=== PATIENT | male | born 1955 | race Caucasian/White ===

== ENCOUNTER 2019-03-19 02:31 | Emergency (ER) | payer MEDICAID ==
[~2019-03-19] VITALS: Ht 172.7 cm; Wt 70.6 kg
--- NOTE | 2019-03-19 02:48 | NUR ---
[facility] FOR RX REFILL, WAS AT [facility] TODAY TO FILL RX AND NOW UNABLE TO CERTIFIED MASSAGE THERAPIST. RN FROM OFFICE SENT HER HERE. PT TAKES MORPHINE 30MG/D, NORCO? 7.5/325. PT HAVING N/V/D/PAIN. REC'D MARTIR SL 4, NS 150CC. BP 210/110. MONITORS APPLIED, SIDERAILS UP X2, CALL LIGHT WITHIN REACH
[2019-03-19] MEDS ORDERED: HYDROmorphone 1 MG/ML, 1ML VIAL ONE (02:51)
[2019-03-19] MEDS ORDERED: HYDROmorphone 2 MG/ML, 1ML IVPush PRN (03:00)
--- NOTE | 2019-03-19 03:02 | NUR ---
PT MEDICATED PER MAR
[2019-03-19] MEDS ORDERED: ASPI-496 PO (03:05)
[2019-03-19] MEDS ORDERED: IBUP100T PO (03:05)
[2019-03-19] MEDS ORDERED: ALBU0.63 NEB (03:05)
[2019-03-19] MEDS ORDERED: ACET325T14 PO (03:05)
[2019-03-19] MEDS ORDERED: OXYC5CAP2 PO (03:05)
[2019-03-19 03:20] LABS: BASOPHILS # (AUTO) 0.11 x10^3/uL (0-0.1); BASOPHILS % (AUTO) 1 % (0-1); EOSINOPHILS # (AUTO) 0.42 x10^3/uL (0-0.4); EOSINOPHILS % (AUTO) 4 % (1-7); LYMPHOCYTES # (AUTO) 2.21 x10^3/uL (1-3.4); LYMPHOCYTES % (AUTO) 23 % (22-44); MD NO; MEAN CORPUSCULAR HEMOGLOBIN 29.6 pg (27.5-34.5); MEAN CORPUSCULAR HGB CONC 33.1 g/dL (33.2-36.2); MEAN CORPUSCULAR VOLUME 89.5 fL (81-97); MONOCYTES # (AUTO) 0.71 x10^3/uL (0.2-0.8); MONOCYTES % (AUTO) 7 % (2-9); NEUTROPHILS # (AUTO) 6.36 x10^3/uL (1.8-6.8); NEUTROPHILS % (AUTO) 65 % (42-75); PLATELET COUNT 225 x10^3/uL (130-400); RED CELL DISTRIBUTION WIDTH 14.1 % (9.4-14.8)
[2019-03-19] MEDS ORDERED: HYDROmorphone 1 MG/ML, 1ML INJ IVPush PRN (03:30)
[2019-03-19 03:31] LABS: ALBUMIN 3.4 g/dL (3.4-5.0); ANION GAP 8 mmol/L (5-15); CALCIUM 8.6 mg/dL (8.5-10.1); CHLORIDE 110 mmol/L (98-107); CREATININE 1.01 mg/dL (0.7-1.3)
--- NOTE | 2019-03-19 03:57 | NUR ---
PT TO CT
[2019-03-19 04:41] VITALS: BP 168/93
--- NOTE | 2019-03-19 04:42 | NUR ---
PT RESTING WITH EYES CLOSED, NAD, MONITORS IN PLACE, CALL LIGHT WITHIN REACH. AWAITING CT RESULT
[2019-03-19] MEDS ORDERED: OMNIPAQUE 350 MG/ML, 100ML BOTTLE ONE (05:08)
== END 2019-03-19 05:42 | disposition home or self-care (01) ==
LOC: ED 05:23
DX: R10.9 Unspecified abdominal pain (principal); I10 Essential (primary) hypertension; J45.909 Unspecified asthma, uncomplicated
CPT/HCPCS: 36415; 74177; 80048; 82040; 85025; 96374; 99284; J1170; Q9967